=== PATIENT | female | born 1995 | race Caucasian/White ===

== ENCOUNTER 2021-09-14 21:23 | Emergency (ER) | payer MEDICAID ==
[~2021-09-14] VITALS: Ht 170.2 cm; Wt 117.9 kg
[2021-09-14 21:48] VITALS: BP 124/89
--- NOTE | 2021-09-14 22:00 | NUR ---
26 YO F BIB SELF WITH C/C OF 6/10 THROBBING RT EAR PAIN XYESTERDAY. PT STATES IT STARTED ITCHING AND POSSIBLY HURT SELF SCRATCHING EAR. PT STATES SHE TOOK TYLENOL YESTERDAY WITH NO RELIEF. DENIES HX, RX ALLERGIES:IBUPROFEN
[2021-09-14 22:06] VITALS: BP 124/89
[2021-09-14] MEDS ORDERED: CIPR7.5S OT (22:32)
[2021-09-14] MEDS ORDERED: CIPR500T4 PO (22:32)
--- NOTE | 2021-09-14 22:35 | NUR ---
PT CLEARED FOR DISCHARGE BY DR. BRIAN. ALL DISCHARGE INSTRUCTIONS AND MEDICATION ADMINISTRATION INFORMATION EXPLAINED BY DR. BRIAN. RX OF CIPRO PROVIDED.
== END 2021-09-14 22:35 | disposition home or self-care (01) ==
LOC: MED 21:23
DX: H65.191 Other acute nonsuppurative otitis media, right ear (principal); Z90.49 Acquired absence of other specified parts of digestive tract; Z79.899 Other long term (current) drug therapy; Z88.6 Allergy status to analgesic agent
CPT/HCPCS: 99283

== ENCOUNTER 2022-03-20 13:00 | Emergency (ER) | payer MEDICAID, OTHER ==
[~2022-03-20] VITALS: Ht 170.2 cm; Wt 123.4 kg
[~2022-03-20 13:00] MED LIST: CIPR500T4 PO; CIPR7.5S OT
[2022-03-20 13:09] VITALS: BP 142/96
--- NOTE | 2022-03-20 13:16 | NUR ---
PT AMB TO BED 12.
--- NOTE | 2022-03-20 13:37 | NUR ---
27 y/o female bib self from home, pt presents to ed with bl ear pain that started on right side, now on her left as well for 1 week. pt states she was seen at urgent care during initial pain, was prescribed amoxiclav, sudafed, cetirizine and ear drops for infection, pt finished meds and has not seen improvement. pt states she has a pressure sensation on the right side of her ear that sounds muffled. denies sore throat, cough, fever, chills or anyone sick at home with same s/s. a&ox4, ambulates with steady gait, states she has mild vertigo. pmh: hx of ear infections allergy: ibuprofen (hives, facial edema) med: amoxiclav, sudafed, cetirizine, ear drops
[2022-03-20] MEDS ORDERED: CARB15DR27 OT (13:59)
[2022-03-20] MEDS ORDERED: AMOX1TAB8 PO (13:59)
[2022-03-20 14:56] VITALS: BP 142/96
--- NOTE | 2022-03-20 14:56 | NUR ---
Patient discharged with v/s stable. Written and verbal after care instructions given and explained. Patient alert, oriented and verbalized understanding of instructions. Ambulatory with steady gait. All questions addressed prior to discharge. ID band removed. Patient advised to follow up with PMD. Rx of amoxicillin, postassium, carbamide peroxide (sent) given. Patient educated on indication of medication including possible reaction and side effects. Opportunity to ask questions provided and answered.
== END 2022-03-20 14:56 | disposition home or self-care (01) ==
LOC: MED 13:00
DX: H92.03 Otalgia, bilateral (principal); Z88.6 Allergy status to analgesic agent
CPT/HCPCS: 99283